=== PATIENT | male | born 1995 | race Caucasian/White ===

== ENCOUNTER 2016-12-03 23:32 | Emergency (ER) | payer OTHER ==
[~2016-12-03] VITALS: Ht 182.9 cm; Wt 95.3 kg
[2016-12-03 23:52] VITALS: Ht 182.9 cm; Wt 95.3 kg
[2016-12-04] MEDS ORDERED: IBUPROFEN 800 MG TAB PO STA (00:01)
[2016-12-04] MEDS ORDERED: ACETAMINOPHEN 500 MG TAB PO STA (00:01)
[2016-12-04] MEDS ORDERED: IBUPROFEN 200 MG TAB ONE (00:12)
[2016-12-04] MEDS ORDERED: IBUPROFEN 600 MG TAB ONE (00:12)
[2016-12-04 01:09] VITALS: TEMP 38.1
[2016-12-04 02:06] LABS: INFLUENZA A PCR Neg for Influ A (NEG); INFLUENZA B PCR Neg for Influ B (NEG)
--- NOTE | 2016-12-04 02:12 | EMERGENCY ROOM VISIT NOTE ---
History First contact with patient: 23:58 Chief Complaint: FLU LIKE SX Stated Complaint: FEVER, SHAKES, SORE THROAT, ACHES History of Present Illness The patient is a 21 year old male who presents to the Emergency Room with complaints of fever, chills, myalgias, arthralgias for the past day. He did not receive the flu vaccine. He took Tylenol Cold and flu earlier today. He is tolerating fluids. Patient denies neck stiffness, sore throat, chest pain, dyspnea, cough, abdominal pain, sinus pain or congestion. Review of Systems See HPI for pertinent positives & negatives. A total of 10 systems reviewed and were otherwise negative. Past Medical/Surgical History None Social History Smoking Status: Never Smoker Smokeless Tobacco Use: No Drug Use: none Marital Status: in relationship Occupation Status: student Current/Historical Medications No Active Prescriptions or Reported Meds Allergies Coded Allergies: No Known Allergies (Unverified , 09/15/12) Physical Exam Vital Signs Date Time Temp Pulse Resp B/P Pulse Ox O2 Delivery O2 Flow Rate FiO2 12/04/16 01:09 38.1 108 16 134/76 97 Room Air 12/03/16 23:52 39.3 131 20 117/90 96 Room Air Physical Exam VITALS: Vitals are noted on the nurse's note and reviewed by myself. Vital signs febrile. GENERAL: Pleasant male mildly ill appearing, in no acute distress, nondiaphoretic, well-developed well-nourished. SKIN: The skin was without rashes, erythema, edema, or bruising. There is no tenting of the skin. Capillary reflex less than 2 seconds. HEAD: Normocephalic atraumatic. EARS: External auditory canals clear, tympanic membranes pearly hernandez without erythema or effusion bilaterally. EYES: Pupils equal round and reactive to light and accommodation. Conjunctivae without injection, sclerae without icterus. Extraocular movements intact. NOSE: Patent, turbinates without inflammation or discharge. No sinus tenderness. MOUTH: Mucous membranes moist. Tonsils are not enlarged. Pharynx without erythema or exudate. Uvula midline. Airway patent. Tongue does not deviate. NECK: Supple without nuchal rigidity. No lymphadenopathy. No thyromegaly. Cervical spine is nontender. No JVD. No meningeal signs HEART: Regular rate and rhythm without murmurs gallops or rubs. LUNGS: Clear to auscultation bilaterally without wheezes, rales or rhonchi. No dullness to percussion. No retractions or accessory muscle use. ABDOMEN: Positive bowel sounds x 4. Normal tympanic percussion. Soft, nontender, without masses or organomegaly. Mg sign negative. No guarding or rebound tenderness. MUSCULOSKELETAL: No muscle atrophy, erythema, or edema noted. NEURO: Patient was alert and oriented to person place and time. Normal sensation to light and sharp touch. No focal neurological deficits. Medical Decision & Procedures Laboratory Results Test 12/04/16 00:20 Influenza Type A (RT-PCR) Neg for Influ A (NEG) Influenza Type B (RT-PCR) Neg for Influ B (NEG) Medications Administered Medications (Trade) Dose Ordered Sig/Nay Route Start Time Stop Time Status Last Admin Dose Admin Acetaminophen (Tylenol Tab) 1,000 mg NOW STAT PO 12/04/16 00:01 12/04/16 00:02 DC 12/04/16 00:16 1,000 MG Ibuprofen (Advil Tab) 200 mg STK-MED ONCE .ROUTE 12/04/16 00:12 12/04/16 00:13 DC 12/04/16 00:16 200 MG Ibuprofen (Motrin Tab) 600 mg STK-MED ONCE .ROUTE 12/04/16 00:12 12/04/16 00:13 DC 12/04/16 00:16 600 MG ED Course Prior records/ancillary studies reviewed. Triage Nursing notes reviewed. Additional history obtained from girlfriend The patient's history was concerning for fever. Differential diagnosis: Etiologies such as viral syndrome, otitis, pharyngitis, pneumonia, influenza, meningitis, urinary tract infection, sepsis, bacteremia, as well as others were entertained. Physical examination: Patient was alert and oriented and tolerated fluids ER treatment provided: Tylenol, Motrin, by mouth fluids On reassessment the patient felt better. Diagnostics interpreted by me: The labs revealed neg flu This appears to be consistent with influenza like illness. He was advised that he is highly contagious. He was advised to stay at home until he is 24 hours as he is highly contagious. He was advised to Take cold medicines as needed. He was advised to return to the ER immediately for high fevers, lethargy, neck stiffness, worsening signs or symptoms or as needed. By the evaluation outlined above emergent etiologies such as otitis, pharyngitis, pneumonia, meningitis, urinary tract infection, sepsis, bacteremia, as well as others were deemed relatively unlikely. The pt informed about the findings as listed above. All questions were answered and pleased with the treatment. Return instructions were outlined and the patient was discharged in stable condition. Referral: The patient was referred back to their primary care physician for follow-up in 2 to 3 days for a recheck of the current condition. Medical Decision As above Impression Primary Impression: Influenza-like symptoms Departure Information Dispostion Home / Self-Care Condition GOOD Prescriptions No Active Prescriptions or Reported Meds Referrals Niko Lu D.OJaz (PCP) Patient Instructions A Signature Page, Jemstep Additional Instructions Acetaminophen(Tylenol) may be used for fever or pain. Use 1000mg every six hours as needed. Avoid using more than 3000mg in a 24 hour period. (AND/OR) Ibuprofen(Motrin, Advil) may be used for fever or pain. Use 600mg every six hours as needed. Take with food. Avoid using more than 2400mg in a 24 hour period. Do not use 2400mg per day for more than three consecutive days without physician direction. Prolonged inappropriate use can lead to stomach upset or ulcers. Afrin nasal spray: 2-3 sprays to each nostril twice daily as needed for congestion. Do not use for more than 3-4 days because it can lead to worsening rebound congestion. Pseudoephedrine(Sudaphed): 30-60mg every 6 hours as needed for nasal congestion. Do not take this with other stimulant products or supplements. Rest and drink plenty of fluids. Controlling your fever with Tylenol and Ibuprofen as above will make you feel better. Wash your hands after nose blowing, sneezing, or coughing. Most germs are spread through contact, therefore improper hygiene may result in your close contacts and loved ones becoming ill just like you. Continue current medications. Return to the ER for severe headache, neck stiffness, chest pain, difficulty breathing, fevers, vomiting, worsening of your condition, or as needed. Follow up with your primary physician this week for a recheck of your current condition.
[2016-12-04 02:29] VITALS: BP 134/78; PULSE 90; O2SAT 96
[2016-12-05] MEDS ORDERED: ACET-1256 PO (15:47)
[2016-12-05] MEDS ORDERED: IBUP-103 PO (15:47)
[2016-12-05] MEDS ORDERED: ONDA4TAB10 SL (16:44)
[2016-12-05] MEDS ORDERED: OMEP20CA9 PO (16:44)
[2016-12-05] MEDS ORDERED: CEFD300C2 PO (16:44)
[2016-12-07] MEDS ORDERED: CEFD300C2 PO ×2 (14:30→14:34)
[2016-12-07] MEDS ORDERED: IBUP-1451 PO (14:30)
== END 2016-12-04 02:30 | disposition home or self-care (01) ==
LOC: C.EDB 23:33
DX: J11.1 Influenza due to unidentified influenza virus with other respiratory manifestations (principal)

== ENCOUNTER 2016-12-05 15:19 | Inpatient (IN) | payer OTHER ==
[~2016-12-05] VITALS: Ht 182.9 cm; Wt 93.4 kg
[2016-12-05] MEDS ORDERED: ONDANSETRON INJ 2 MG/ML 2 ML VIAL IV STA (15:36)
[2016-12-05] MEDS ORDERED: SODIUM CHLORIDE 0.9% 1000ML 2,000 ML IV STA (15:36)
[2016-12-05] MEDS ORDERED: KETOROLAC TROMETHAMINE 30 MG/ML VIAL IV STA (15:36)
[2016-12-05] MEDS ORDERED: ACETAMINOPHEN 500 MG TAB PO STA (15:36)
[2016-12-05] MEDS ORDERED: IBUP-103 PO (15:47)
[2016-12-05] MEDS ORDERED: ACET-1256 PO (15:47)
--- NOTE | 2016-12-05 15:48 | EMERGENCY ROOM VISIT NOTE ---
History Report prepared by Khalida: Sahara Torres Under the Supervision of: Dr. Xavier Tellez D.O. First contact with patient: 15:30 Chief Complaint: VOMITING Stated Complaint: VOMITING, DEHYDRATED Nursing Triage Summary: Nausea, vomiting, flu-like symptoms. Tried Tylenol but vomited it up per pt. History of Present Illness The patient is a 21 year old male who presents to the Emergency Room with complaints of nausea and vomiting. The patient presented to our emergency Department a few days ago with flulike symptoms. Mostly at that time it was upper respiratory complaints such as sore throat and cough. He had a fever at that time. His symptoms started to improve. His flu swab was reportedly negative. The patient returns today because of recurrence of symptoms which include nausea vomiting and fever. The patient states he is unable to keep down liquids at this time. He has taken Tylenol for the fever but not today. The patient has not seen his primary care physician for these symptoms. He denies having any chest pain. He does complain of mild sore throat at this time but feels that it is secondary to vomiting. He denies having any abdominal pain currently. He has not noticed any rectal bleeding or vomiting of any blood. Source of History: patient Onset: today Position: other (global) Quality: other (nausea and vomiting) Associated Symptoms: + fevers, + sorethroat (mild), No abdominal pain, No chest pain Note: Patient denies any rectal bleeding or vomiting any blood. Review of Systems See HPI for pertinent positives & negatives. A total of 10 systems reviewed and were otherwise negative. Past Medical & Surgical Medical Problems: (1) No significant medical problems Family History Patient reports no known family medical history. Social History Smoking Status: Never Smoker Drug Use: none Marital Status: in relationship Occupation Status: student Current/Historical Medications Scheduled Cefdinir (Omnicef), 300 MG PO Q12H Omeprazole (Prilosec), 1 CAP PO DAILY Ondasetron Odt (Zofran Odt), 4 MG SL Q6H Scheduled PRN Acetaminophen (Tylenol), 1,000 MG PO UD PRN for Pain or Fever Ibuprofen Tab (Advil), 400-600 MG PO Q6H PRN for Pain or Fever Allergies Coded Allergies: No Known Allergies (Unverified , 09/15/12) Physical Exam Vital Signs Date Time Temp Pulse Resp B/P Pulse Ox O2 Delivery O2 Flow Rate FiO2 12/05/16 17:30 37.7 106 20 117/58 96 Room Air 12/05/16 15:25 39.5 131 20 148/80 99 Room Air Physical Exam GENERAL: Patient is awake and alert. He is mildly anxious and uncomfortable. EYES: The conjunctivae are clear. The pupils are round and reactive. EARS, NOSE, MOUTH AND THROAT: The nose is without any evidence of any deformity. Mucous membranes are dry. NECK: The neck is nontender and supple. RESPIRATORY: Normal respiratory effort is noted there is no evidence of wheezing rhonchi or rales CARDIOVASCULAR: Tachycardic rate is noted to auscultation. No definite murmur was noted. GASTROINTESTINAL: The abdomen is soft. Bowel sounds are present in all quadrants. Abdomen is nontender MUSCULOSKELETAL/EXTREMITIES: There is no evidence of gross deformity full range of motion is noted in the hips and shoulders SKIN: There is no obvious evidence of any rash. There are no petechiae, pallor or cyanosis noted. NEUROLOGIC: Patient is awake alert and oriented x3 strength. Medical Decision & Procedures ER Provider Diagnostic Interpretation: X-ray results as stated below per interpretation by me and the radiologist. ABDOMEN 2VIEW W/PA CHEST RTN CLINICAL HISTORY: Abdominal pain and flulike symptoms COMPARISON STUDY: No previous studies for comparison. FINDINGS: The erect chest reveals no evidence for free air. There are left perihilar airspace opacities, likely inflammatory given the clinical history of flulike symptoms. Short-term radiographic follow-up is recommended. There is no free air. Erect and supine views the abdomen reveal moderate stool throughout the colon. There is mild gaseous prominence of the colon. There are right mid abdominal air-fluid levels, likely colonic. There are no transition zone to indicate a high-grade bowel obstruction. IMPRESSION: 1. Left perihilar airspace opacities, likely inflammatory. Short-term radiographic follow-up is recommended 2. Right mid abdominal air-fluid levels. These are likely colonic. There is no conventional radiographic evidence of bowel obstruction. There is no free air. Electronically signed by: Seun Umaña M.D. 12/05/2016 4:17 PM Dictated Date/Time: 12/05/2016 4:15 PM Laboratory Results 12/05/16 15:40 Red Blood Count 5.24, Mean Corpuscular Volume 86.5, Mean Corpuscular Hemoglobin 30.3, Mean Corpuscular Hemoglobin Concent 35.1, Mean Platelet Volume 9.6, Neutrophils (%) (Auto) 79.1, Lymphocytes (%) (Auto) 10.1, Monocytes (%) (Auto) 10.5, Eosinophils (%) (Auto) 0.0, Basophils (%) (Auto) 0.2, Neutrophils # (Auto ) 7.62, Lymphocytes # (Auto) 0.97, Monocytes # (Auto) 1.01, Eosinophils # (Auto ) 0.00, Basophils # (Auto) 0.02 12/05/16 15:40 Test 12/05/16 15:40 White Blood Count 9.63 K/uL (4.8-10.8) Red Blood Count 5.24 M/uL (4.7-6.1) Hemoglobin 15.9 g/dL (14.0-18.0) Hematocrit 45.3 % (42-52) Mean Corpuscular Volume 86.5 fL (80-100) Mean Corpuscular Hemoglobin 30.3 pg (25-34) Mean Corpuscular Hemoglobin Concent 35.1 g/dl (32-36) Platelet Count 177 K/uL (130-400) Mean Platelet Volume 9.6 fL (7.4-10.4) Neutrophils (%) (Auto) 79.1 % Lymphocytes (%) (Auto) 10.1 % Monocytes (%) (Auto) 10.5 % Eosinophils (%) (Auto) 0.0 % Basophils (%) (Auto) 0.2 % Neutrophils # (Auto) 7.62 K/uL (1.4-6.5) Lymphocytes # (Auto) 0.97 K/uL (1.2-3.4) Monocytes # (Auto) 1.01 K/uL (0.11-0.59) Eosinophils # (Auto) 0.00 K/uL (0-0.5) Basophils # (Auto) 0.02 K/uL (0-0.2) RDW Standard Deviation 40.5 fL (36.4-46.3) RDW Coefficient of Variation 12.6 % (11.5-14.5) Immature Granulocyte % (Auto) 0.1 % Immature Granulocyte # (Auto) 0.01 K/uL (0.00-0.02) Anion Gap 10.0 mmol/L (3-11) Est Creatinine Clear Calc Drug Dose 104.9 ml/min Estimated GFR () 89.1 Estimated GFR (Non- 76.9 BUN/Creatinine Ratio 6.5 (10-20) Calcium Level 8.7 mg/dl (8.5-10.1) Total Bilirubin 0.4 mg/dl (0.2-1) Direct Bilirubin 0.1 mg/dl (0-0.2) Aspartate Amino Transf (AST/SGOT) 18 U/L (15-37) Alanine Aminotransferase (ALT/SGPT) 41 U/L (12-78) Alkaline Phosphatase 117 U/L (45-117) Total Creatine Kinase 139 U/L (39-308) Total Protein 7.7 gm/dl (6.4-8.2) Albumin 4.1 gm/dl (3.4-5.0) Lipase 105 U/L (73-393) Laboratory results per my review. Medications Administered Medications (Trade) Dose Ordered Sig/Nay Route Start Time Stop Time Status Last Admin Dose Admin Acetaminophen (Tylenol Tab) 1,000 mg NOW STAT PO 12/05/16 15:36 12/05/16 15:37 DC 12/05/16 15:48 1,000 MG Ketorolac Tromethamine (Toradol Inj) 30 mg NOW STAT IV 12/05/16 15:36 12/05/16 15:37 DC 12/05/16 15:48 30 MG Ondansetron HCl 4 mg 4 mg NOW STAT IV 12/05/16 15:36 12/05/16 15:37 DC 12/05/16 15:48 4 MG Sodium Chloride (Nss 1000ml) 2,000 ml @ 999 mls/hr Q2H1M STAT IV 12/05/16 15:36 12/05/16 17:36 DC 12/05/16 15:48 999 MLS/HR Ceftriaxone Sodium (Rocephin Inj) 1 gm NOW STAT IV 12/05/16 16:26 12/05/16 16:27 DC 12/05/16 16:34 1 GM ED Course 1530: The patient was evaluated in room A3. A complete history and physical examination were performed. 1536: Ordered NSS 2,000 ml @ 999 mls/hr IV, Zofran Inj 4 mg IV, Toradol Inj 30 mg IV, Tylenol Tab 1,000 mg PO. 1608: I reevaluated the patient and he was feeling better. 1626: Ordered Rocephin Inj 1 gm IV. 1650: Upon reevaluation, the patient is resting comfortably. I discussed the results and treatment plan with him. He verbalized agreement of the treatment plan. The patient was discharged home. 1725: The patient was expressing the desire to be admitted for further evaluation in the hospital. 1745:I discussed the case with Dr. Kalyn Garcia. He agreed to evaluate the patient for further management and care. Medical Decision Prior records/ancillary studies reviewed. Triage Nursing notes reviewed. Differential diagnosis: Etiologies such as gastroenteritis, food borne illness, infections, appendicitis , diverticulitis, inflammatory bowel disease, obstruction, GI bleed, biliary pathology, as well as others were entertained. The patient is a 21-year-old male who presented to the emergency department for an evaluation of febrile illness. The patient noticed nausea and vomiting. He was seen earlier this week in our facility for similar complaints but states he' s noticed nausea and vomiting developing over the last 24 hours. The patient was tachycardic and febrile. He was treated with IV fluids IV pain medicine IV antiemetics and IV antibiotics for presumed pneumonia noted on chest x-ray. I discussed the patient's laboratory and radiographic studies with him. On subsequent reevaluation he was feeling much better. He was encouraged to rest and avoid any strenuous activity. He was encouraged to call his family doctor soon as possible schedule follow-up appointment. Also encouraged to continue all medications as prescribed and return to the emergency department immediately if symptoms change worsen or the need arises. When the patient was about to be discharged he started to become concerned because his temperature had gone up a little bit. He felt warm and requested to be evaluated by the hospitalist for possible admission. I discussed the case with him or department shoe caser and then the [facility]. They've agreed to evaluate the patient in the emergency department for further management and disposition. Consults Time Called: 173 Consulting Physician: Dr. Kalyn Garcia Returned Call: [phone] I discussed the case with Dr. Kalyn Garcia. He agreed to evaluate the patient for further management and care. Impression Primary Impression: Nausea & vomiting Additional Impressions: Fever Pneumonia SIRS (systemic inflammatory response syndrome) Scribe Attestation The scribe's documentation has been prepared under my direction and personally reviewed by me in its entirety. I confirm that the note above accurately reflects all work, treatment, procedures, and medical decision making performed by me. Departure Information Dispostion Being Evaluated By Hospitalist Prescriptions Omeprazole (PRILOSEC) 20 Mg Cap 1 CAP PO DAILY for 30 Days, #30 CAP 0 Refills Prov: Xavier Tellez, DO 12/05/16 Ondasetron Odt (ZOFRAN ODT) 4 Mg Tab 4 MG SL Q6H for Nausea, #15 TAB Prov: Xavier Tellez, DO 12/05/16 Cefdinir (OMNICEF) 300 Mg Cap 300 MG PO Q12H, #20 CAP Prov: Xavier Tellez, DO 12/05/16 Referrals Niko Lu, D.O. (PCP) Problem Qualifiers
[2016-12-05 16:04] LABS: BASO % 0.2 %; BASO ABS # 0.02 K/uL (0-0.2); COMPLETE YES; HEMATOCRIT 45.3 % (42-52); IG% 0.1 %; LYMPH % 10.1 %; LYMPH ABS # 0.97 K/uL (1.2-3.4); MEAN CELL VOLUME 86.5 fL (80-100); MEAN CORPUSCULAR HEMOGLOBIN 30.3 pg (25-34); MEAN CORPUSCULAR HGB CONC 35.1 g/dl (32-36); MEAN PLATELET VOLUME 9.6 fL (7.4-10.4); MONO % 10.5 %; NEUT % 79.1 %; PLATELET COUNT 177 K/uL (130-400); RED BLOOD COUNT 5.24 M/uL (4.7-6.1); WHITE BLOOD COUNT 9.63 K/uL (4.8-10.8)
--- NOTE | 2016-12-05 16:19 | DIAGNOSTIC IMAGING REPORT ---
ABDOMEN 2VIEW W/PA CHEST RTN CLINICAL HISTORY: Abdominal pain and flulike symptoms COMPARISON STUDY: No previous studies for comparison. FINDINGS: The erect chest reveals no evidence for free air. There are left perihilar airspace opacities, likely inflammatory given the clinical history of flulike symptoms. Short-term radiographic follow-up is recommended. There is no free air. Erect and supine views the abdomen reveal moderate stool throughout the colon. There is mild gaseous prominence of the colon. There are right mid abdominal air-fluid levels, likely colonic. There are no transition zone to indicate a high-grade bowel obstruction. IMPRESSION: 1. Left perihilar airspace opacities, likely inflammatory. Short-term radiographic follow-up is recommended 2. Right mid abdominal air-fluid levels. These are likely colonic. There is no conventional radiographic evidence of bowel obstruction. There is no free air. Electronically signed by: Seun Umaña M.D. 12/05/2016 4:17 PM Dictated Date/Time: 12/05/2016 4:15 PM
[2016-12-05] MEDS ORDERED: CEFTRIAXONE SOD INJ 1 GM ADDVIAL IV STA (16:26)
[2016-12-05 16:27] LABS: BUN/CREATININE RATIO 6.5 (10-20); CALCIUM 8.7 mg/dl (8.5-10.1); CREATININE 1.3 mg/dl (0.60-1.40); POTASSIUM 3.6 mmol/L (3.5-5.1)
[2016-12-05] MEDS ORDERED: CEFD300C2 PO (16:44)
[2016-12-05] MEDS ORDERED: ONDA4TAB10 SL (16:44)
[2016-12-05] MEDS ORDERED: OMEP20CA9 PO (16:44)
[2016-12-05] MEDS ORDERED: METOCLOPRAMIDE HCL INJ 5 MG/ML 2 ML VIAL IV STA (18:12)
[2016-12-05] MEDS ORDERED: ALUMINUM/MAGNESIUM/SIMETH (MAALOX MAX) 30 ML UDC PO PRN (18:15)
[2016-12-05] MEDS ORDERED: POLYETHYLENE (MIRALAX) 17 GM PACK PO PRN (18:15)
[2016-12-05] MEDS ORDERED: ONDANSETRON INJ 2 MG/ML 2 ML VIAL IV PRN (18:15)
[2016-12-05] MEDS ORDERED: MAGNESIUM HYDROXIDE SUSP 30 ML UDC PO PRN (18:15)
--- NOTE | 2016-12-05 18:19 | History and Physical ---
History & Physical Date & Time of Service: Dec 05, 2016 at 18:17 Chief Complaint: Vomiting, Dehydrated Primary Care Physician: Niko Lu D.OJaz History of Present Illness Source: patient, hospital records 21 year old male with past medical history of gastritis presents to the ED with chief C/O nausea/vomiting and cough with sire throat. Patient presented to the ER a few days ago with flulike symptoms. Mostly at that time it was upper respiratory complaints such as sore throat and cough. He had a fever at that time. His symptoms started to improve. His flu swab was reportedly negative. The patient returns today because of recurrence of symptoms which include nausea vomiting and fever. The patient states he is unable to keep down liquids at this time. He has been taking Tylenol for the fever but not today. The patient has not seen his primary care physician for these symptoms. He denies having any chest pain. He does complain of mild sore throat at this time but feels that it is secondary to vomiting. He denies having any abdominal pain currently. He has not noticed any rectal bleeding or vomiting of any blood. Past Medical/Surgical History Medical Problems: (1) No significant medical problems Status: Resolved Family History Patient reports no known family medical history. Social History Smoking Status: Never Smoker Drug Use: none Marital Status: in relationship Housing status: lives with family Occupational Status: student Allergies Coded Allergies: No Known Allergies (Unverified , 09/15/12) Home Medications Scheduled Cefdinir (Omnicef), 300 MG PO Q12H Omeprazole (Prilosec), 1 CAP PO DAILY Ondasetron Odt (Zofran Odt), 4 MG SL Q6H Scheduled PRN Acetaminophen (Tylenol), 1,000 MG PO UD PRN for Pain or Fever Ibuprofen Tab (Advil), 400-600 MG PO Q6H PRN for Pain or Fever Review of Systems See HPI for pertinent positives & negatives. A total of 10 systems reviewed and were otherwise negative. Physical Exam Vital Signs Date Time Temp Pulse Resp B/P Pulse Ox O2 Delivery O2 Flow Rate FiO2 12/05/16 17:30 37.7 106 20 117/58 96 Room Air 12/05/16 15:25 39.5 131 20 148/80 99 Room Air General Appearance: WD/WN, no apparent distress Head: normocephalic, atraumatic Eyes: normal inspection, PERRL, EOMI, sclerae normal ENT: normal ENT inspection, hearing grossly normal, TMs normal, + pharyngeal erythema (No visible exudates.) Neck: supple, no adenopathy, thyroid normal, no JVD, trachea midline Respiratory/Chest: chest non-tender, lungs clear, normal breath sounds, no respiratory distress, no accessory muscle use Cardiovascular: regular rate, rhythm, no edema, no gallop, no JVD, no murmur, normal peripheral pulses Abdomen/GI: normal bowel sounds, non tender, soft, no organomegaly Genitourinary - Male: normal male genitalia Back: normal inspection, no CVA tenderness, no muscle spasm, normal range of motion Extremities/Musculoskelatal: normal inspection, no calf tenderness, normal capillary refill, no pedal edema, normal range of motion Neurologic/Psych: alert, normal mood/affect, normal reflexes, oriented x 3 Skin: normal color, warm/dry, no rash Lymphatic: no adenopathy Diagnostics Laboratory Results Results Past 24 Hours Test 12/05/16 15:40 12/05/16 17:51 Range/Units White Blood Count 9.63 4.8-10.8 K/uL Red Blood Count 5.24 4.7-6.1 M/uL Hemoglobin 15.9 14.0-18.0 g/dL Hematocrit 45.3 42-52 % Mean Corpuscular Volume 86.5 80-100 fL Mean Corpuscular Hemoglobin 30.3 25-34 pg Mean Corpuscular Hemoglobin Concent 35.1 32-36 g/dl Platelet Count 177 130-400 K/uL Mean Platelet Volume 9.6 7.4-10.4 fL Neutrophils (%) (Auto) 79.1 % Lymphocytes (%) (Auto) 10.1 % Monocytes (%) (Auto) 10.5 % Eosinophils (%) (Auto) 0.0 % Basophils (%) (Auto) 0.2 % Neutrophils # (Auto) 7.62 1.4-6.5 K/uL Lymphocytes # (Auto) 0.97 1.2-3.4 K/uL Monocytes # (Auto) 1.01 0.11-0.59 K/uL Eosinophils # (Auto) 0.00 0-0.5 K/uL Basophils # (Auto) 0.02 0-0.2 K/uL RDW Standard Deviation 40.5 36.4-46.3 fL RDW Coefficient of Variation 12.6 11.5-14.5 % Immature Granulocyte % (Auto) 0.1 % Immature Granulocyte # (Auto) 0.01 0.00-0.02 K/uL Sodium Level 138 136-145 mmol/L Potassium Level 3.6 3.5-5.1 mmol/L Chloride Level 102 98-107 mmol/L Carbon Dioxide Level 26 21-32 mmol/L Anion Gap 10.0 3-11 mmol/L Blood Urea Nitrogen 8 7-18 mg/dl Creatinine 1.30 0.60-1.40 mg/dl Est Creatinine Clear Calc Drug Dose 104.9 ml/min Estimated GFR () 89.1 Estimated GFR (Non- 76.9 BUN/Creatinine Ratio 6.5 10-20 Random Glucose 116 70-99 mg/dl Calcium Level 8.7 8.5-10.1 mg/dl Total Bilirubin 0.4 0.2-1 mg/dl Direct Bilirubin 0.1 0-0.2 mg/dl Aspartate Amino Transf (AST/SGOT) 18 15-37 U/L Alanine Aminotransferase (ALT/SGPT) 41 12-78 U/L Alkaline Phosphatase 117 45-117 U/L Total Creatine Kinase 139 39-308 U/L Total Protein 7.7 6.4-8.2 gm/dl Albumin 4.1 3.4-5.0 gm/dl Lipase 105 73-393 U/L Diagnostic Radiology ABDOMEN 2VIEW W/PA CHEST RTN CLINICAL HISTORY: Abdominal pain and flulike symptoms COMPARISON STUDY: No previous studies for comparison. FINDINGS: The erect chest reveals no evidence for free air. There are left perihilar airspace opacities, likely inflammatory given the clinical history of flulike symptoms. Short-term radiographic follow-up is recommended. There is no free air. Erect and supine views the abdomen reveal moderate stool throughout the colon. There is mild gaseous prominence of the colon. There are right mid abdominal air-fluid levels, likely colonic. There are no transition zone to indicate a high-grade bowel obstruction. IMPRESSION: 1. Left perihilar airspace opacities, likely inflammatory. Short-term radiographic follow-up is recommended 2. Right mid abdominal air-fluid levels. These are likely colonic. There is no conventional radiographic evidence of bowel obstruction. There is no free air. Impression Assessment and Plan Left Sided Pneumonia: Has persistent nausea/vomiting and unable to hold any oral stuff. Admit to Medical floor. -Started IVF -Reglan 10 mg every 6 hourly -Full liquid diet to be tried if symptoms improve & then advance gradually. -Continue Rocephin Gastritis: Continue PPI. Level of Care Med/Surg Resuscitation Status FULL RESUSCITATION VTE Prophylaxis VTE Risk Assessment Done? Y/N: Yes Risk Level: Very Low Given or contraindicated: SCD's
[2016-12-05] MEDS: SODIUM CHLORIDE 0.9% 1000ML 1,000 ML IV SCH (20:58)
[2016-12-05 21:31] VITALS: BP 109/72; PULSE 98; TEMP 37; O2SAT 95; Ht 182.9 cm; Wt 93.4 kg
[2016-12-05 22:02] VITALS: TEMP 39.4
[2016-12-05] MEDS: ACETAMINOPHEN 325 MG TAB PO PRN ×3 (22:06→22:39)
[2016-12-05] MEDS ORDERED: INFLUENZA VIRUS QUAD VACCINE 0.5 ML SYR IM. ONE (23:00)
[2016-12-05] MEDS ORDERED: INFLUENZA ADMINISTRATION CHARGE ONE (23:00)
[2016-12-05] MEDS ORDERED: PNEUMOCOCCAL ADMINISTRATION CHARGE ONE (23:00)
[2016-12-05] MEDS ORDERED: PNEUMOCOCCAL POLYSACCHARIDES 25 MCG/0.5 ML VIAL/SYR IM. ONE (23:00)
[2016-12-05 23:35] VITALS: BP 107/63; PULSE 130; TEMP 39.4; O2SAT 96
[2016-12-05] MEDS: METOCLOPRAMIDE HCL INJ 5 MG/ML 2 ML VIAL IV SCH (23:45)
[2016-12-06 00:30] LABS: URINE APPEARANCE CLEAR (CLEAR); URINE BILIRUBIN NEG (NEG); URINE COLOR YELLOW; URINE NITRITE NEG (NEG); URINE PH 6.5 (4.5-7.5); URINE SPECIFIC GRAVITY 1.018 (1.000-1.030); UROBILINOGEN NEG (NEG)
[2016-12-06 00:31] LABS: MANUAL MICROSCOPIC REQUIRED? NO; REVIEW REQ? NO
[2016-12-06] MEDS: ACETAMINOPHEN 325 MG TAB PO PRN (04:36)
[2016-12-06 04:37] VITALS: PULSE 118; TEMP 37.7
[2016-12-06] MEDS: METOCLOPRAMIDE HCL INJ 5 MG/ML 2 ML VIAL IV SCH ×2 (05:11→11:18)
[2016-12-06 07:50] LABS: BASO % 0.3 %; BASO ABS # 0.03 K/uL (0-0.2); COMPLETE YES; HEMATOCRIT 40.1 % (42-52); IG% 0.2 %; LYMPH % 16.9 %; LYMPH ABS # 1.74 K/uL (1.2-3.4); MEAN CELL VOLUME 86.4 fL (80-100); MEAN CORPUSCULAR HEMOGLOBIN 29.7 pg (25-34); MEAN CORPUSCULAR HGB CONC 34.4 g/dl (32-36); MEAN PLATELET VOLUME 9.7 fL (7.4-10.4); NEUT % 70.6 %; PLATELET COUNT 173 K/uL (130-400); RED BLOOD COUNT 4.64 M/uL (4.7-6.1); WHITE BLOOD COUNT 10.29 K/uL (4.8-10.8)
[2016-12-06 08:19] LABS: BUN/CREATININE RATIO 9.4 (10-20); CALCIUM 8.1 mg/dl (8.5-10.1); POTASSIUM 3.7 mmol/L (3.5-5.1)
[2016-12-06 08:24] VITALS: BP 115/75; PULSE 103; TEMP 36.9; O2SAT 97
[2016-12-06] MEDS: SODIUM CHLORIDE 0.9% 1000ML 1,000 ML IV SCH ×2 (09:58→20:43)
[2016-12-06] MEDS: PANTOprazole SOD 40 MG TAB PO SCH (09:59)
[2016-12-06] MEDS ORDERED: KETOROLAC TROMETHAMINE 30 MG/ML VIAL IV ONE (13:55)
[2016-12-06] MEDS ORDERED: ONDANSETRON INJ 2 MG/ML 2 ML VIAL IV PRN (14:00)
[2016-12-06 15:44] VITALS: BP 120/77; PULSE 109; TEMP 37.5; O2SAT 97
[2016-12-06] MEDS ORDERED: CEFTRIAXONE SOD INJ 1 GM in DEXTROSE 5% ADD-VANTAGE 50ML 50 ML IV SCH (16:00)
--- NOTE | 2016-12-06 17:53 | Progress Note ---
Medicine Progress Note Date & Time of Visit: Dec 06, 2016 at 13:57. Subjective 89 F overnight Tm vomited only once last night not eating 2/2 lack of appetite no diarrhea no abdominal pain sore throat is the main issue. 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 Pharnyx with erythema and significant exudates on tonsils. NECK: no LAD CARDIO: reg rate, S1/2 heard without m/g/r LUNGS: CTA bilaterally, no crackles, rales or wheezes, good diaphragmatic excursion ABD: soft, non-tender, non-distended, no rebound or guarding, +BS EXTREMITY: RP and DP palpable 2+ bilat, no LE swelling or edema, extremities are warm and well-perfused NEURO: CN 2-12 grossly intact, sensation intact throughout, no gross focal deficits. MUSC: 5/5 strength throughout, no focal deficits SKIN: warm and diaphoretic Laboratory Results: Last 24 Hours Test 12/05/16 15:40 12/05/16 19:03 12/06/16 00:09 12/06/16 07:11 White Blood Count 9.63 K/uL 10.29 K/uL Red Blood Count 5.24 M/uL 4.64 M/uL Hemoglobin 15.9 g/dL 13.8 g/dL Hematocrit 45.3 % 40.1 % Mean Corpuscular Volume 86.5 fL 86.4 fL Mean Corpuscular Hemoglobin 30.3 pg 29.7 pg Mean Corpuscular Hemoglobin Concent 35.1 g/dl 34.4 g/dl Platelet Count 177 K/uL 173 K/uL Mean Platelet Volume 9.6 fL 9.7 fL Neutrophils (%) (Auto) 79.1 % 70.6 % Lymphocytes (%) (Auto) 10.1 % 16.9 % Monocytes (%) (Auto) 10.5 % 12.0 % Eosinophils (%) (Auto) 0.0 % 0.0 % Basophils (%) (Auto) 0.2 % 0.3 % Neutrophils # (Auto) 7.62 K/uL 7.27 K/uL Lymphocytes # (Auto) 0.97 K/uL 1.74 K/uL Monocytes # (Auto) 1.01 K/uL 1.23 K/uL Eosinophils # (Auto) 0.00 K/uL 0.00 K/uL Basophils # (Auto) 0.02 K/uL 0.03 K/uL RDW Standard Deviation 40.5 fL 39.8 fL RDW Coefficient of Variation 12.6 % 12.5 % Immature Granulocyte % (Auto) 0.1 % 0.2 % Immature Granulocyte # (Auto) 0.01 K/uL 0.02 K/uL Sodium Level 138 mmol/L 139 mmol/L Potassium Level 3.6 mmol/L 3.7 mmol/L Chloride Level 102 mmol/L 106 mmol/L Carbon Dioxide Level 26 mmol/L 23 mmol/L Anion Gap 10.0 mmol/L 10.0 mmol/L Blood Urea Nitrogen 8 mg/dl 9 mg/dl Creatinine 1.30 mg/dl 1.00 mg/dl Est Creatinine Clear Calc Drug Dose 104.9 ml/min 136.4 ml/min Estimated GFR () 89.1 122.4 Estimated GFR (Non- 76.9 105.6 BUN/Creatinine Ratio 6.5 9.4 Random Glucose 116 mg/dl 101 mg/dl Calcium Level 8.7 mg/dl 8.1 mg/dl Total Bilirubin 0.4 mg/dl Direct Bilirubin 0.1 mg/dl Aspartate Amino Transf (AST/SGOT) 18 U/L Alanine Aminotransferase (ALT/SGPT) 41 U/L Alkaline Phosphatase 117 U/L Total Creatine Kinase 139 U/L Total Protein 7.7 gm/dl Albumin 4.1 gm/dl Lipase 105 U/L Lactic Acid Level 0.9 mmol/L Urine Color YELLOW Urine Appearance CLEAR Urine pH 6.5 Urine Specific [place] 1.018 Urine Protein NEG Urine Glucose (UA) NEG Urine Ketones NEG Urine Occult Blood NEG Urine Nitrite NEG Urine Bilirubin NEG Urine Urobilinogen NEG Urine Leukocyte Esterase NEG Test 12/06/16 13:48 Assessment & Plan 21 yoM otherwise healthy admitted for intolerance of PO 2/2 infection. Flu negative 1. Exudative tonsillitis with sore throat 2. L [id number] 3. Nausea & vomiting 4. Fever exudative tonsillitis, sore throat, lack of cough, no LAD, check monospot, rapid strep and throat culture poss L lung pneumonia-cont Rocephin Reglan changed to Zofran Added Toradol for throat pain improved from yesterday, cont current management above. Mer Ortiz DO [facility] Hospitalist Current Inpatient Medications: Current Inpatient Medications Medications (Trade) Dose Ordered Sig/Nay Route Start Time Stop Time Status Last Admin Dose Admin Pantoprazole Sodium (Protonix Tab) 40 mg QAM PO 12/06/16 08:00 01/05/17 07:59 12/06/16 09:59 40 MG Acetaminophen (Tylenol Tab) 650 mg Q4H PRN PO 12/05/16 18:15 01/04/17 18:14 12/06/16 04:36 650 MG Al Hydrox/Mg Hydrox/Simethicone (Maalox Max Susp) 15 ml Q4H PRN PO 12/05/16 18:15 01/04/17 18:14 Magnesium Hydroxide (Milk Of Magnesia Susp) 30 ml Q6H PRN PO 12/05/16 18:15 01/04/17 18:14 Polyethylene (Miralax Powder Packet) 17 gm DAILY PRN PO 12/05/16 18:15 01/04/17 18:14 Ondansetron HCl 4 mg 4 mg Q6H PRN IV 12/05/16 18:15 01/04/17 18:14 12/05/16 22:12 4 MG Sodium Chloride (Nss 1000ml) 1,000 ml @ 75 mls/hr [id number] IV 12/05/16 18:15 01/04/17 18:14 12/06/16 09:58 75 MLS/HR Metoclopramide HCl 10 mg 10 mg Q6H IV 12/05/16 23:00 01/04/17 22:59 12/06/16 11:18 10 MG Ceftriaxone Sodium/Dextrose (Rocephin Inj/ Dextrose Add-Dania 50ML) 50 ml @ 100 mls/hr Q24H IV 12/06/16 16:00 12/13/16 15:59
[2016-12-06] MEDS ORDERED: KETOROLAC TROMETHAMINE 30 MG/ML VIAL IV PRN (22:00)
[2016-12-06 23:23] VITALS: BP 131/84; PULSE 95; TEMP 37.4; O2SAT 97
[2016-12-07] MEDS: ACETAMINOPHEN 325 MG TAB PO PRN (01:51)
[2016-12-07 01:52] VITALS: TEMP 37.3
[2016-12-07 07:34] LABS: BASO % 0.7 %; BASO ABS # 0.04 K/uL (0-0.2); COMPLETE YES; EOS % 0.9 %; HEMATOCRIT 39.3 % (42-52); IG% 0.2 %; LYMPH % 37.2 %; MEAN CELL VOLUME 86.8 fL (80-100); MEAN CORPUSCULAR HEMOGLOBIN 29.4 pg (25-34); MEAN CORPUSCULAR HGB CONC 33.8 g/dl (32-36); MEAN PLATELET VOLUME 9.3 fL (7.4-10.4); MONO % 14.2 %; NEUT % 46.8 %; PLATELET COUNT 176 K/uL (130-400); RED BLOOD COUNT 4.53 M/uL (4.7-6.1); WHITE BLOOD COUNT 5.37 K/uL (4.8-10.8)
[2016-12-07 08:13] LABS: BUN/CREATININE RATIO 9.5 (10-20); CALCIUM 8.5 mg/dl (8.5-10.1); CREATININE 0.92 mg/dl (0.60-1.40); POTASSIUM 3.4 mmol/L (3.5-5.1)
[2016-12-07 08:24] VITALS: BP 133/86; PULSE 74; TEMP 36.7; O2SAT 99
[2016-12-07] MEDS ORDERED: POTASSIUM CHLORIDE 20 MEQ TABCR PO ONE (09:45)
[2016-12-07] MEDS: PANTOprazole SOD 40 MG TAB PO SCH (10:08)
[2016-12-07] MEDS ORDERED: CEFD300C2 PO ×2 (14:30→14:34)
[2016-12-07] MEDS ORDERED: IBUP-1451 PO (14:30)
--- NOTE | 2016-12-07 14:38 | Discharge Instructions ---
Discharge Instructions Admission Reason for Admission: Pneumonia Discharge Discharge Diagnosis / Problem: Community-acquired pneumonia Discharge Goals Goal(s): Prevent Disease Progression Activity Recommendations Activity Limitations: resume your previous activity . Instructions / Follow-Up Instructions / Follow-Up Please take all medications as instructed. You have a follow-up appointment with your PCP, Dr. Niko Lu, scheduled for , 12/11 @ 1:00pm. Please bring all paperwork from this hospitalization. A repeat chest xray is recommended in 4-6 weeks to ensure resolution of the lung infection. Dr. Lu will be able to order this during your follow-up appointment. It was a pleasure taking care of you! Call if you have any questions or problems. You can reach a [facility] hospitalist on duty at [facility] 24 hours a day by calling [phone]. Take care of yourself. Mer Ortiz, [facility] Hospitalist Current Hospital Diet Patient's current hospital diet: Regular Diet Discharge Diet Recommended Diet: Regular Diet Procedures Procedures Performed: None. Pending Studies Studies pending at discharge: no Work Instructions Return To Work: 2 days Medical Emergencies . Who to Call and When: Medical Emergencies: If at any time you feel your situation is an emergency, please call 911 immediately. . Non-Emergent Contact Non-Emergency issues call your: Primary Care Provider . . "Provider Documentation" section prepared by Mer Ortiz. VTE Core Measure Inpt VTE Proph given/why not?: SCD's
[2016-12-07 15:09] VITALS: BP 133/86; PULSE 74; TEMP 36.7; O2SAT 99
--- NOTE | 2016-12-12 10:51 | Discharge Summary ---
Discharge Summary Admission Date: Dec 05, 2016 at 18:11 Discharge Date: Dec 07, 2016 Discharge Disposition: Home Principal Diagnosis: Community-acquired pneumonia Exudative tonsillitis Fever-resolved Tachycardia-resolved Procedures: None. Vaccinations: Pneumovax-declined Flu given Consultations: None. Pending Studies/Follow-Up: See instructions below. Medication Reconciliation New Medications: Cefdinir (Omnicef) 300 Mg Cap 1 CAP PO BID for 8 Days, #16 CAP Changed Medications: Ibuprofen Tab (Motrin) 800 Mg Tab 800 MG PO Q8H PRN for Pain for 10 Days, #30 TAB (Changed from: Ibuprofen Tab ( Advil) 200 Mg Tab 400-600 Mg PO Q6H PRN Pain or Fever) Continued Medications: Acetaminophen (Tylenol) 500 Mg Tab 1000 MG PO UD PRN for Pain or Fever, TAB TAKE PER PACKAGE DIRECTIONS Omeprazole (Prilosec) 20 Mg Cap 1 CAP PO DAILY for 30 Days, #30 CAP 0 Refills Ondasetron Odt (Zofran Odt) 4 Mg Tab 4 MG SL Q6H for Nausea, #15 TAB Admission Information HPI (per Admitting provider): 21 year old male with past medical history of gastritis presents to the ED with chief C/O nausea/vomiting and cough with sire throat. Patient presented to the ER a few days ago with flulike symptoms. Mostly at that time it was upper respiratory complaints such as sore throat and cough. He had a fever at that time. His symptoms started to improve. His flu swab was reportedly negative. The patient returns today because of recurrence of symptoms which include nausea vomiting and fever. The patient states he is unable to keep down liquids at this time. He has been taking Tylenol for the fever but not today. The patient has not seen his primary care physician for these symptoms. He denies having any chest pain. He does complain of mild sore throat at this time but feels that it is secondary to vomiting. He denies having any abdominal pain currently. He has not noticed any rectal bleeding or vomiting of any blood. Physical Exam (per Admitting): General Appearance: WD/WN, no apparent distress Head: normocephalic, atraumatic Eyes: normal inspection, PERRL, EOMI, sclerae normal ENT: normal ENT inspection, hearing grossly normal, TMs normal, + pharyngeal erythema (No visible exudates.) Neck: supple, no adenopathy, thyroid normal, no JVD, trachea midline Respiratory/Chest: chest non-tender, lungs clear, normal breath sounds, no respiratory distress, no accessory muscle use Cardiovascular: regular rate, rhythm, no edema, no gallop, no JVD, no murmur , normal peripheral pulses Abdomen/GI: normal bowel sounds, non tender, soft, no organomegaly Genitourinary - Male: normal male genitalia Back: normal inspection, no CVA tenderness, no muscle spasm, normal range of motion Extremities/Musculoskelatal: normal inspection, no calf tenderness, normal capillary refill, no pedal edema, normal range of motion Neurologic/Psych: alert, normal mood/affect, normal reflexes, oriented x 3 Skin: normal color, warm/dry, no rash Lymphatic: no adenopathy Hospital Course 21 yoM otherwise healthy admitted for intolerance of PO 2/2 infection. Flu negative 1. Exudative tonsillitis with sore throat 2. L [id number] 3. Nausea & vomiting 4. Fever exudative tonsillitis, sore throat, lack of cough, no LAD, monospot-neg, throat culture-neg poss L lung pneumonia-cont Rocephin Reglan changed to Zofran Added Toradol for throat pain On day of discharge, he had improved greatly having defervesced and been afebrile for the past 24 hours, he was tolerating PO and was ambulatory. He still had a sore throat but this was improved, and exudates on tonsils appeared to be improving, also. He had a normal heart and lung exam and was asking to go home. He was sent home on Omnicef PO with close follow-up scheduled with his PCP. Total time spent on discharge = 60 minutes This includes examination of the patient, discharge planning, medication reconciliation, and communication with other providers. Discharge Instructions Discharge Instructions Admission Reason for Admission: Pneumonia Discharge Discharge Diagnosis / Problem: Community-acquired pneumonia Discharge Goals Goal(s): Prevent Disease Progression Activity Recommendations Activity Limitations: resume your previous activity . Instructions / Follow-Up Please take all medications as instructed. You have a follow-up appointment with your PCP, Dr. Niko Lu, scheduled for , 12/11 @ 1:00pm. Please bring all paperwork from this hospitalization. A repeat chest xray is recommended in 4-6 weeks to ensure resolution of the lung infection. Dr. Lu will be able to order this during your follow-up appointment. It was a pleasure taking care of you! Call if you have any questions or problems. You can reach a [facility] hospitalist on duty at [facility] 24 hours a day by calling [phone]. Take care of yourself. Mer Ortiz, DO [place] Hospitalist Additional Copies To Niko Lu D.O.
== END 2016-12-07 16:42 | disposition home or self-care (01) | DRG 195 ==
LOC: ENRESERVDT → ENRESERVTM → C.EDB 15:20 → C.4E 18:11
PROVIDERS: ADMIT Emergency Medicine; ATTEND Hospitalist
DX: J18.9 Pneumonia, unspecified organism (principal); K29.70 Gastritis, unspecified, without bleeding; J03.90 Acute tonsillitis, unspecified; E86.0 Dehydration; Z23 Encounter for immunization; Z79.899 Other long term (current) drug therapy

== ENCOUNTER 2017-12-24 16:33 | Emergency (ER) | payer OTHER ==
[~2017-12-24] VITALS: Ht 182.9 cm; Wt 94.4 kg
[~2017-12-24 16:33] MED LIST: ACET-1256 PO; OMEP20CA9 PO
[2017-12-24 16:42] VITALS: TEMP 36.8; Ht 182.9 cm; Wt 94.4 kg
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
[2017-12-24 18:21] VITALS: BP 127/78; PULSE 78; O2SAT 100
== END 2017-12-24 18:24 | disposition home or self-care (01) ==
LOC: C.EDB 16:34 → C.EDD 18:24
DX: M79.621 Pain in right upper arm (principal); M25.511 Pain in right shoulder; M25.531 Pain in right wrist; V47.5XXA Car driver injured in collision with fixed or stationary object in traffic accident, initial encounter; Y92.488 Other paved roadways as the place of occurrence of the external cause